=== PATIENT | female | born 1940 | race Caucasian/White ===

== ENCOUNTER 2023-08-31 22:11 | Emergency (ER) | payer OTHER, SELFPAY ==
[2023-08-31 22:12] VITALS: BP 138/58
[2023-08-31 22:18] VITALS: BMI 24.2
--- NOTE | 2023-08-31 23:01 | ED.GENMED ---
History of Present Illness
General
Chief Complaint: Head Injury
Source: patient
Exam Limitations: none
Time Seen by Provider: 08/31/23 22:16
Nursing documentation reviewed up to this point in time: agreed with
Travel History
Have you had any contact with someone who has COVID-19?: No
Do you have any symptoms of coronavirus? Fever > 100 degrees, chills, cough, shortness of breath, sore throat, loss of taste or smell, muscle aches, or headache?: No
History of Present Illness
History of Present Illness:
This a pleasantly demented 83-year-old female that presents with fall this evening. Patient had a head strike. Denies loss of consciousness. She she is on Eliquis for atrial fibrillation. She denies any other injury. History is limited.
Past History
Past History
ED Past Medical History: Arrthythmia (Atrial fibrillation with ablation), HTN and Other (Migraine headaches, rheumatic heart disease, Fractured l ankle, dementia, chronic cough, stress incontinence, UTI)
ED Past Surgical History: Appendectomy, Cholecystectomy, Gynecological (Hysterectomy), Tonsilectomy and Other (Breast reduction, cystocele repair, parathyroidectomy, Bladder lift with mesh)
Social History
Tobacco: Non-smoker
Alcohol: Occasional
Drug: None
Personal:
Living: with family
Review of Systems
Review of Systems
Allergies reviewed?: Yes
Unable to obtain full review of systems at this time due to: dementia
All Other Systems: ROS reviewed and negative except as documented in HPI and ROS
Constitutional: Reports no symptoms
EENT: Reports no symptoms
Respiratory: Reports no symptoms
Cardiac: Reports no symptoms
ABD/GI: Reports no symptoms
: Reports no symptoms
Musculoskeletal: Reports no symptoms
Skin: Reports no symptoms
Neurological: Denies headache
Endocrine: Reports no symptoms
Hematologic/Lymphatic: Reports no symptoms
Psychiatric: Reports anxiety
Phy Exam
General Physical Exam
General Presentation: well appearing and no apparent distress
General Skin: warm and dry
General Habitus: normal
General Hydration: appears well hydrated
ENT Exam
ENT Exam: EOMI, pharynx normal, neck supple and normocephalic
Eye Exam
Eye Exam: PERRL, cornea clear and conjunctiva normal
Cardiovascular Exam
Cardiovascular Exam: no edema, no murmur, normal peripheral pulses and irregularly irregular
Pulmonary Exam
Pulmonary Exam: lungs clear, no respiratory distress, no rales, no crackles, no rhonchi, no stridor, no wheezing and no cough
Gastrointestinal Exam
Gastrointestinal Exam: normal bowel sounds, non tender, soft, no organomegaly, no pulsatile mass and non distended
Neurological Exam
Neurological Exam: alert, oriented x3, no motor deficits and speech normal
Musculoskeletal Exam
Musculoskeletal Exam: full ROM, no edema and other (Full range of motion in all the joints. She initially stated she had tenderness to palpation on the left lateral thigh. She has full range of motion in the hip. Full range of motion of the knee.
No evidence of bruising. And no tenderness to palpation in the same location on subsequent exam.)
Skin Exam
Skin Exam: normal color, warm/dry, no rash and no petechia
Psychiatric Exam
Psychiatric Exam: normal mood/affect
Course
Orders/Labs/Results
Orders:
Orders
08/31/23 22:47
CT Head W/o Iv Contrast Urgent
Comment:
Reason For Exam: fall, posterior head strike, on eliquis
09/01/23 00:46
Melatonin 5 mg PO NOW STA
Vital Signs
Initial and Last Documented VS:
Initial Vital Signs
Temp Pulse Resp BP Pulse Ox
97 F 65 18 138/58 96
08/31/23 22:12 08/31/23 22:12 08/31/23 22:12 08/31/23 22:12 08/31/23 22:12
Last Documented Vital Signs
Temp Pulse Resp BP Pulse Ox
97 F 68 18 114/50 94
08/31/23 22:12 09/01/23 05:05 09/01/23 05:05 09/01/23 05:05 09/01/23 05:05
*Critical Care Note
Total Time (30-74mins, 75-104mins- exclusive of procedures): Not Applicable
Update Note
Update Note:
CT head without contrast
Comparison: 08/27/22, 03/21/22
IMPRESSION:
No acute intracranial hemorrhage. No mass-effect or midline shift.
Mild to moderate ventricular dilatation, similar to prior studies. Generalized atrophy.
Moderate white matter changes related to chronic small vessel ischemic disease.
Left posterior occipital scalp swelling. No skull fracture.
ED Attending Note
-
Portions of this chart may have been created with voice recognition software.� Occasional wrong word or��sound alike� substitutions may have occurred due to the inherent limitations of voice recognition software.
Discharge Plan
Departure
Patient Disposition: Custodial/SNF
Date of Disposition: 09/01/23
Time of Disposition: 00:14
Patient with high blood pressure during this ER visit?: Yes
Condition: Good
Discharge Problem:
Head injury
Instructions: Head Injury in Adults (DC), Contusion (DC), BLOOD PRESSURE
Prescriptions:
No Action
amlodipine 10 MG tablet
10 mg PO HS Qty: 0 0RF
propafenone 225 MG capsule,extended release 12 hr
225 mg PO DAILY
escitalopram oxalate 5 MG tablet
5 mg PO DAILY
Eliquis 5 MG tablet
5 mg PO BID Qty: 0 0RF
Rx Instructions:
on 01/27
atorvastatin 40 mg Tablet
40 mg PO DAILY
acetaminophen 325 mg Tablet
650 mg PO PRN PRN (Reason: pain)
donepezil 10 mg Tablet
10 mg PO HS
atenolol 25 mg Tablet
25 mg PO DAILY
docusate sodium 100 mg Capsule
100 mg PO DAILY PRN (Reason: constipation)
Acidophilus Capsule
1 cap PO DAILY
fluticasone propionate 50 mcg/actuation [place],Suspension
1 spray INTRANASAL DAILY
Refresh Optive 0.5-0.9 % Drops
1 drp BOTH EYES DAILY
Referrals:
Lyle Castro MD [Family Provider] -
Activity Restrictions/Additional Instructions:
It was a pleasure meeting you and taking part in your care. We hope for your continued healing and wellness.
Please read discharge instructions in their entirety. However, they are for general education and may not describe your exact diagnosis at discharge. Information on your ER visit and medical conditions were discussed with you along with appropriate
follow up information...
If indicated, please take your medications as instructed and indicated on discharge paperwork.
Please schedule a follow up appointment as directed. Call to schedule an appointment
Please return to the emergency department with ANY change in, persisting, or worsening of symptoms. If any of your symptoms do not improve, or persist, or become more severe within 6-12 hours, please return to the emergency department for further
care.
Please return to the emergency department if you develop a headache, neck pain/stiffness, fever greater than 100.4F, chest pain, shortness of breath, persistent nausea, vomiting, slurred speech, difficulty walking, numbness/tingling, weakness, signs
of infection or any other symptoms that are worrisome to you.
If you have any questions or concerns please do not hesitate to call the Hospital at or E-mail me directly at [email or web address]
Interventions
Interventions:
*Risk Screen - Suicide Last Done: 08/31/23 22:12
*General Assessment Last Done: 08/31/23 22:12
*Neglect/Abuse Screening Last Done: 08/31/23 22:12
ED- Fall Risk Assessment Last Done: 08/31/23 22:20
ED- Neurological Assessment Last Done: 08/31/23 22:18
ED-Skin Assessment Last Done: 08/31/23 22:24
Discharge Date and Time
Print Language: IVORIAN
[2023-09-01 05:05] VITALS: BP 114/50
--- NOTE | 2023-09-01 07:21 | EDRN ---
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
awaiting transport for the pt, will continue to monitor the pt closely
[2023-09-01 07:23] VITALS: BP 136/71
--- NOTE | 2023-09-01 09:09 | EDRN ---
the pt ambulated to the nurses station and walked up to this RN, and stated, 'Can i please have some kelsey greta?', this RN assisted the pt back to the pts room and the pt is resting in stretcher in the lowest position, side rails up x2, call miller
within reach, HOB elevated, no s/s of distress, will continue to monitor the pt closely
--- NOTE | 2023-09-01 09:13 | EDRN ---
Acute Care has arrived and verbal report was given, this RN called [facility] at [phone] and gave verbal report to the receiving nurse Yanelis
== END 2023-09-01 09:17 ==
LOC: EMR 22:11
PROVIDERS: EMERGENCY PHYSICIAN Student in an Organized Health Care Education/Training Program; FAMILY PHYSICIAN Internal Medicine Geriatric Medicine
DX: S09.90XA Unspecified injury of head, initial encounter (principal); W19.XXXA Unspecified fall, initial encounter; I67.82 Cerebral ischemia; F03.90 Unspecified dementia, unspecified severity, without behavioral disturbance, psychotic disturbance, mood disturbance, and anxiety; I10 Essential (primary) hypertension; I48.91 Unspecified atrial fibrillation; I09.9 Rheumatic heart disease, unspecified; G43.909 Migraine, unspecified, not intractable, without status migrainosus; K21.9 Gastro-esophageal reflux disease without esophagitis; M19.90 Unspecified osteoarthritis, unspecified site; F32.A Depression, unspecified; R05.3 Chronic cough; Z79.01 Long term (current) use of anticoagulants; Z87.440 Personal history of urinary (tract) infections; Z90.49 Acquired absence of other specified parts of digestive tract
CPT/HCPCS: 99284; 70450

== ENCOUNTER → 2023-12-03 13:58 | Outpatient (REF) | payer OTHER, SELFPAY | LOC: RCS 13:58 | PROVIDERS: ATTENDING PHYSICIAN Physician Assistant; FAMILY PHYSICIAN Internal Medicine Geriatric Medicine | DX: I48.0 Paroxysmal atrial fibrillation (principal) | CPT/HCPCS: 93306 ==

== ENCOUNTER 2023-12-08 14:06 | Emergency (ER) | payer OTHER, SELFPAY ==
[2023-12-08 14:08] VITALS: BP 100/51; BMI 23.6
[2023-12-08 14:49] LABS: % Basophils 0.9 % (0-2); % Eosinophils 2.4 % (0-6); % Immature Granulocytes 0.5 % (0-0.5); % Lymphocytes 23.6 % (20.5-51.1); % Monocytes 11.3 % (1.7-9.3); % Neutrophils 61.3 % (42.2-75.2); Absolute Basophils 0.1 10^3/uL (0-0.2); Absolute Eosinophils 0.1 10^3/uL (0-0.7); Absolute Lymphocytes 1.4 10^3/uL (1.2-3.4); Absolute Monocytes 0.7 10^3/uL (0.1-0.6); Absolute Neutrophils 3.6 10^3/uL (1.4-6.5); Hematocrit 37.5 % (37.0-47.0); Hemoglobin 12.5 g/dL (12.0-16.0); Mean Corp Hgb Conc. 33.3 g/dL (33.0-37.0); Mean Corpuscular Hgb 30.1 pg (27.0-31.0); Mean Corpuscular Volume 90.4 fL (81.0-99.0); Mean Platelet Volume 9.8 fL (7.4-10.4); Nucleated Red Blood Cells % 0 %; Platelet Count 231 10^3/uL (130-400); Red Blood Cell Count 4.15 10^6/uL (4.20-5.40); Red Cell Dist. Width 14.1 % (11.5-14.5); White Blood Cell Count 5.8 10^3/uL (4.8-10.8)
[2023-12-08 15:02] LABS: ALT (SGPT) 18 U/L (0-35); AST (SGOT) 27 U/L (14-36); Albumin 3.8 g/dl (3.5-5.0); Alkaline Phosphatase 97 U/L (38-126); Blood Urea Nitrogen 16 mg/dl (7-17); Calcium 8.9 mg/dl (8.4-10.2); Carbon Dioxide 30 mmol/L (22-30); Estimated Creatinine Clearance 41 ml/min; Glucose 98 mg/dl (70-99); Total Bilirubin 0.5 mg/dl (0.2-1.3); Total Protein 6.1 g/dl (6.3-8.2); eGFR > 60.00
[2023-12-08 15:32] LABS: Chloride 104 mmol/L (98-107); Potassium 4.2 mmol/L (3.5-5.1); Sodium 138 mmol/L (135-145)
--- NOTE | 2023-12-08 16:44 | ED.GENMED ---
History of Present Illness
General
Chief Complaint: Fall
Source: ambulance crew and group home
Time Seen by Provider: 12/08/23 15:17
History of Present Illness
History of Present Illness:
83-year-old female with past medical history of dementia, atrial fibrillation, hypertension presenting to the emergency department for evaluation after she had a reported witnessed accidental trip and fall with suspected head injury as well as being
on Eliquis. [facility] sent her to the ER for further evaluation. Patient had reported to staff on arrival that she had some right posterior scalp tenderness but is denying any of this to me. Staff at [facility] was also attempting to get a urine
sample as her urine seem to be a little bit malodorous today. Patient is denying any urinary symptoms to me however she also seems pleasantly confused so history is somewhat unreliable. Patient is unable to recall events from her fall. No other
concerns presently.
Past History
Past History
ED Past Medical History: Arrthythmia (Atrial fibrillation with ablation), HTN and Other (Migraine headaches, rheumatic heart disease, Fractured l ankle, dementia, chronic cough, stress incontinence, UTI)
ED Past Surgical History: Appendectomy, Cholecystectomy, Gynecological (Hysterectomy), Tonsilectomy and Other (Breast reduction, cystocele repair, parathyroidectomy, Bladder lift with mesh)
Social History
Tobacco: Non-smoker
Alcohol: Occasional
Drug: None
Personal:
Living: with family
Review of Systems
Review of Systems
All Other Systems: ROS reviewed and negative except as documented in HPI and ROS
Phy Exam
Physical Exam
Physical Exam:
GENERAL: Alert , in no apparent distress
Head: Normocephalic atraumatic
EYE: conjunctiva clear
NECK: Supple
ENT: o/p clr, mmm.
CARDIAC: Regular rate and rhythm
LUNGS: Clear breath sounds bilaterally, no acute respiratory distress, no wheezes/rales/rhonchi
NEUROLOGICAL: Alert and oriented to self but not place or time
SKIN: Warm and dry, skin intact.
MUSCULOSKELETAL: well perfused.
PSYCH: Normal and appropriate interaction.
Scores
Heart Failure Risk
Heart Failure Risk Score: Not Applicable
Heart Score for Chest Pain Patients
STEMI patient?: Not applicable
Withdrawal Assessment of Alcohol
Withdrawal Assessment Completed?: Not applicable
Course
Orders/Labs/Results
Orders:
Orders
12/08/23 14:32
CT Head W/o Iv Contrast Urgent
Comment:
Reason For Exam: Head injury on eliquis
12/08/23 14:33
Urinalysis Reflex To Culture Urgent
Date Specimen was Collected: 12/08/23
Time Specimen was Collected: 14:33
12/08/23 14:39
Complete Blood Count/With Diff Urgent
Comprehensive Metabolic Panel Urgent
Abnormal Lab Results
12/08/23
14:39
RBC 4.15 L 10^6/uL
(4.20-5.40)
Absolute Monos (auto) 0.7 H 10^3/uL
(0.1-0.6)
Monocytes % 11.3 H %
(1.7-9.3)
Total Protein 6.1 L g/dl
(6.3-8.2)
12/08/23 14:39
12/08/23 14:39
Vital Signs
Initial and Last Documented VS:
Initial Vital Signs
Temp Pulse Resp BP Pulse Ox
98.2 F 60 16 100/51 98
12/08/23 14:08 12/08/23 14:08 12/08/23 14:08 12/08/23 14:08 12/08/23 14:08
Last Documented Vital Signs
Temp Pulse Resp BP Pulse Ox
98.2 F 60 16 100/51 98
12/08/23 14:08 12/08/23 14:08 12/08/23 14:08 12/08/23 14:08 12/08/23 14:08
MDM/Problems Addressed
Differential Diagnosis Includes:
Accidental trip and fall, contusion, intracranial bleeding, UTI
MDM/Problems Addressed:
83-year-old female presenting emergency department for evaluation of an accidental trip and fall with possible head injury. Patient is on Eliquis due to history of A-fib. Currently denying any symptoms. She is unable to recall events from her
fall today. CT of the head ordered. Will also attempt to get a urinalysis to further evaluate. Disposition pending
Chronic conditions affecting care: Neurological disorder (Dementia)
*Radiology
Radiology exam reviewed: radiology read reviewed
*Pulse Oximetry
Patient hypoxic: no
*Critical Care Note
Total Time (30-74mins, 75-104mins- exclusive of procedures): Not Applicable
Patient Management
Discussion with other providers: skilled nursing staff
Escalation/DeEscalation of care consider admission/obs:
Multiple attempts made to get a urine sample however patient missed the urine specimen cup and then had walked to the bathroom and urinated prior to notifying staff. I spoke to patient's group home staff and notified them that we attempted to get
a urine specimen but that this was unsuccessful. Patient is otherwise well-appearing and in no acute distress. His reason for continued outpatient management. Patient is otherwise stable for discharge back to facility.
ED Attending Note
-
Portions of this chart may have been created with voice recognition software.� Occasional wrong word or��sound alike� substitutions may have occurred due to the inherent limitations of voice recognition software.
Discharge Plan
Departure
Patient Disposition: Home (Routine Discharge)
Date of Disposition: 12/08/23
Time of Disposition: 16:45
Patient with high blood pressure during this ER visit?: No
Discharge Problem:
Accidental fall, Dementia
Instructions: Preventing falls in adults
Prescriptions:
No Action
amlodipine 10 MG tablet
10 mg PO HS Qty: 0 0RF
propafenone 225 MG capsule,extended release 12 hr
225 mg PO DAILY
escitalopram oxalate 5 MG tablet
5 mg PO DAILY
Eliquis 5 MG tablet
5 mg PO BID Qty: 0 0RF
Rx Instructions:
on 01/27
atorvastatin 40 mg Tablet
40 mg PO DAILY
acetaminophen 325 mg Tablet
650 mg PO PRN PRN (Reason: pain)
donepezil 10 mg Tablet
10 mg PO HS
atenolol 25 mg Tablet
25 mg PO DAILY
docusate sodium 100 mg Capsule
100 mg PO DAILY PRN (Reason: constipation)
Acidophilus Capsule
1 cap PO DAILY
fluticasone propionate 50 mcg/actuation [place],Suspension
1 spray INTRANASAL DAILY
Refresh Optive 0.5-0.9 % Drops
1 drp BOTH EYES DAILY
Referrals:
Lyle Castro MD [Family Provider] -
Interventions
Interventions:
*Risk Screen - Suicide Last Done: 12/08/23 14:13
*Neglect/Abuse Screening Last Done: 12/08/23 14:13
ED- Fall Risk Assessment Last Done: 12/08/23 14:13
ED-Musculoskeletal Assessment Last Done: 12/08/23 14:10
ED- Neurological Assessment Last Done: 12/08/23 14:10
ED-Skin Assessment Last Done: 12/08/23 14:10
Discharge Date and Time
Print Language: CAMBODIAN
--- NOTE | 2023-12-08 16:54 | EDRN ---
HEATHER Ortiz called and gave report to Nursing staff at [facility] regarding test results, and that urine can be obtained outpt.
== END 2023-12-08 18:28 | disposition home or self-care (01) ==
LOC: EMR 14:06
PROVIDERS: EMERGENCY PHYSICIAN Emergency Medicine; FAMILY PHYSICIAN Internal Medicine Geriatric Medicine
DX: S09.90XA Unspecified injury of head, initial encounter (principal); F03.90 Unspecified dementia, unspecified severity, without behavioral disturbance, psychotic disturbance, mood disturbance, and anxiety; W01.0XXA Fall on same level from slipping, tripping and stumbling without subsequent striking against object, initial encounter; I48.91 Unspecified atrial fibrillation; I10 Essential (primary) hypertension
CPT/HCPCS: 99284; 70450; 80053; 85025

== ENCOUNTER → 2023-12-12 10:24 | Outpatient (REF) | payer OTHER, SELFPAY | LOC: OLABLV 10:24 | PROVIDERS: ATTENDING PHYSICIAN Internal Medicine Geriatric Medicine | DX: R35.0 Frequency of micturition (principal); R82.90 Unspecified abnormal findings in urine | CPT/HCPCS: 87086 ==

== ENCOUNTER 2024-07-12 10:31 | Day surgery (SDC) | payer OTHER, SELFPAY ==
[2024-07-12 10:41] VITALS: BMI 29.6
[2024-07-12 10:57] VITALS: BP 128/72
[2024-07-12 11:02] LABS: Hematocrit 42.3 % (37.0-47.0); Hemoglobin 13.8 g/dL (12.0-16.0); Mean Corp Hgb Conc. 32.6 g/dL (33.0-37.0); Mean Corpuscular Hgb 29.9 pg (27.0-31.0); Mean Corpuscular Volume 91.8 fL (81.0-99.0); Mean Platelet Volume 9.7 fL (7.4-10.4); Platelet Count 239 10^3/uL (130-400); Red Blood Cell Count 4.61 10^6/uL (4.20-5.40); Red Cell Dist. Width 14.2 % (11.5-14.5)
[2024-07-12 11:12] VITALS: BMI 30.7
[2024-07-12 11:13] LABS: APTT 26.8 Sec (23.4-35.0); INR 0.99; PT 13.4 Sec (11.4-14.6)
[2024-07-12 11:24] LABS: ALT (SGPT) 23 U/L (0-35); AST (SGOT) 26 U/L (14-36); Alkaline Phosphatase 121 U/L (38-126); Blood Urea Nitrogen 11 mg/dl (7-17); Calcium 9.1 mg/dl (8.4-10.2); Carbon Dioxide 27 mmol/L (22-30); Chloride 106 mmol/L (98-107); Estimated Creatinine Clearance 38 ml/min; Glucose 94 mg/dl (70-99); Potassium 4.4 mmol/L (3.5-5.1); Sodium 140 mmol/L (135-145); Total Bilirubin 0.7 mg/dl (0.2-1.3); Total Protein 6.5 g/dl (6.3-8.2); eGFR > 60.00
[2024-07-12] MEDS: VANCOCIN 200 IV (12:54)
[2024-07-12 14:27] VITALS: BP 124/69
[2024-07-12 14:43] VITALS: BP 134/80
--- NOTE | 2024-07-12 14:45 | ITS.CL.PACE ---
Forming Machine Upkeep Mechanic - Pacemaker Implant
Pacemaker Implant
Procedure Report:
PACEMAKER GENERATOR CHANGE
Date of Procedure: July 12, 2024
Primary Care Provider: Lyle Castro M.D.
Primary Open Pit Quarry Supervisor: Ivette Jones M.D.
PROCEDURES:
1. Removal of dual chamber PPM generator at [facility]
2. Implant of new dual chamber PPM generator
INDICATION FOR PROCEDURE:
1. PPM generator at [facility]
2. Non-reversible symptomatic bradycardia due to sinus node dysfunction.
The patient was prepped and draped in sterile fashion. Lidocaine with epi was used for local anesthesia. An incision was made along the previous incision and the device and leads were carefully dissected from the pocket. Hemostasis was obtained
with electrocautery. The leads were from the device header and tested using an external analyzer. The pocket was liberally irrigated with antibiotic solution. Once testing (see below) showed adequate and stable function, the leads were
connected to the generator header and the leads and generator were placed within the pocket. The pocket was closed in the typical fashion.
EXPLANTED PPM GENERATOR:
[facility] [id number], [id number], Left Pectoral
IMPLANTED PPM GENERATOR:
Hu [id number], [id number]
RETAINED LEADS:
SJM 2088T, CAT [id number] , RAA
SJM 2088T, CAU [id number] , RV apical septum
DEVICE TESTING:
Sensing: RA 1.5 mV, RV 3.5 mV
Capture: RA 1 V @ 0.4ms, RV 0.5 V @ 0.4ms
Ohms: RA 310, RV 410
FINAL PROGRAMMING
Srini Pacing: DDDR 60-120 ppm
COMPLICATIONS:
None
CONCLUSIONS:
1. Successful explant of dual chamber permanent pacemaker
2. Successful implant of dual chamber permanent pacemaker
RECOMMENDATIONS:
1. In-Office wound check in 7-10 days.
Copy to:
Lyle Castro M.D.
Ivette Jones M.D.
[2024-07-12 14:58] VITALS: BP 127/63
[2024-07-12 15:25] VITALS: BP 161/78
== END 2024-07-12 15:40 | disposition home or self-care (01) ==
LOC: CATH 10:31
PROVIDERS: ATTENDING PHYSICIAN Internal Medicine Cardiovascular Disease; FAMILY PHYSICIAN Nurse Practitioner Gerontology
DX: Z45.010 Encounter for checking and testing of cardiac pacemaker pulse generator [battery] (principal); I49.5 Sick sinus syndrome; Z88.5 Allergy status to narcotic agent; Z88.2 Allergy status to sulfonamides; Z88.1 Allergy status to other antibiotic agents; Z88.0 Allergy status to penicillin; Z79.01 Long term (current) use of anticoagulants; E78.49 Other hyperlipidemia; I10 Essential (primary) hypertension
CPT/HCPCS: 33228; 80053; 85027; 85610; 85730; C1785

== ENCOUNTER 2024-08-16 19:15 | Emergency (ER) | payer OTHER, SELFPAY ==
[2024-08-16 19:17] VITALS: BP 135/70
--- NOTE | 2024-08-16 19:19 | ED.GENMED ---
History of Present Illness
General
Chief Complaint: Fall
Source: patient
Exam Limitations: none
Time Seen by Provider: 08/16/24 19:18
Nursing documentation reviewed up to this point in time: agreed with
History of Present Illness
History of Present Illness:
Patient is an 84-year-old female from [place] presents to the ER nursing care facility for evaluation of fall. Patient walked into another resident as per EMS and fell back hitting her head. EMS reports patient is on Eliquis and does have a
hematoma to her posterior head. She does have baseline dementia. Patient presents awake alert. She is able to tell me she fell. She c/o of soreness to head no headache. No vomiting as per EMS and pt is at baseline mental status as per nursing
care facility.
Past History
Past History
ED Past Medical History: Arrthythmia (Atrial fibrillation with ablation), HTN and Other (Migraine headaches, rheumatic heart disease, Fractured l ankle, dementia, chronic cough, stress incontinence, UTI)
ED Past Surgical History: Appendectomy, Cholecystectomy, Gynecological (Hysterectomy), Tonsilectomy and Other (Breast reduction, cystocele repair, parathyroidectomy, Bladder lift with mesh)
Social History
Tobacco: Non-smoker
Alcohol: Occasional
Drug: None
Personal:
Living: with family
Review of Systems
Review of Systems
Allergies reviewed?: Yes
Unable to obtain full review of systems at this time due to: dementia
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
All Other Systems: ROS reviewed and negative except as documented in HPI and ROS
Constitutional: Reports no symptoms
ABD/GI: Denies nausea or vomiting
Skin: Reports no symptoms
Neurological: Denies headache ( no LOC )
Hematologic/Lymphatic: Reports no symptoms
Psychiatric: Reports no symptoms
Phy Exam
General Physical Exam
General Presentation: no apparent distress
General age: appears stated age
General Skin: warm and dry
General Habitus: normal
General Mental: alert
General Hydration: appears well hydrated
Cardiovascular Exam
Cardiovascular Exam: regular rate/rhythm, no murmur and normal peripheral pulses
Pulmonary Exam
Pulmonary Exam: lungs clear and no respiratory distress
Neurological Exam
Neurological Exam: alert and other (Follows commands but confused conversation)
Musculoskeletal Exam
Musculoskeletal Exam: other (Hematoma to posterior occiput moves all extremities no bony C-spine tenderness;)
Skin Exam
Skin Exam: normal color and warm/dry
Psychiatric Exam
Psychiatric Exam: normal mood/affect
Course
Orders/Labs/Results
Orders:
Orders
08/16/24 19:18
CT Head W/o Iv Contrast Urgent
Comment:
Reason For Exam: trauma
08/16/24 19:19
CT Cervical Spine W/o Iv Contr Urgent
Comment:
Reason For Exam: trauma
Vital Signs
Initial and Last Documented VS:
Initial Vital Signs
Temp Pulse Resp BP Pulse Ox
98.5 F 57 19 135/70 97
08/16/24 19:17 08/16/24 19:17 08/16/24 19:17 08/16/24 19:17 08/16/24 19:17
Last Documented Vital Signs
Temp Pulse Resp BP Pulse Ox
98.5 F 60 19 150/61 95
08/16/24 19:17 08/16/24 23:56 08/16/24 19:17 08/16/24 23:56 08/16/24 23:56
MDM/Problems Addressed
MDM/Problems Addressed:
Patient is an 84-year-old female on [facility] sent by retirement for head injury. Patient walked into the the patient fell back hitting her head she does have posterior hip obvious about hematoma on exam. ct head neg , ct c spine negative .
Patient is pleasantly confused here no other injury stable discharged back to nursing facility.
*Radiology
Radiology exam reviewed: radiology read reviewed
*Pulse Oximetry
Patient hypoxic: no
*Critical Care Note
Total Time (30-74mins, 75-104mins- exclusive of procedures): Not Applicable
ED Attending Note
-
Portions of this chart may have been created with voice recognition software.� Occasional wrong word or��sound alike� substitutions may have occurred due to the inherent limitations of voice recognition software.
Discharge Plan
Departure
Patient Disposition: Home (Routine Discharge)
Date of Disposition: 08/16/24
Time of Disposition: 21:21
Patient with high blood pressure during this ER visit?: Yes
Condition: Fair
Covid-19: Not Applicable
Discharge Problem:
Head injury
Instructions: Head Injury in Adults (DC), BLOOD PRESSURE
Prescriptions:
No Action
propafenone 225 MG capsule,extended release 12 hr
225 mg PO BID
escitalopram oxalate 5 MG tablet
5 mg PO DAILY
Eliquis 5 MG tablet
5 mg PO BID Qty: 0 0RF
atorvastatin 40 mg Tablet
40 mg PO HS
acetaminophen 325 mg Tablet
650 mg PO PRN PRN (Reason: pain)
donepezil 10 mg Tablet
10 mg PO HS
atenolol 25 mg Tablet
25 mg PO DAILY
docusate sodium 100 mg Capsule
100 mg PO DAILY PRN (Reason: constipation)
Acidophilus Capsule
1 cap PO DAILY
fluticasone propionate 50 mcg/actuation [place],Suspension
1 spray INTRANASAL DAILY
loratadine 10 mg Tablet
10 mg PO DAILY
Refresh Optive 0.5-0.9 % Drops
1 drp OPHTHALMIC (EYE) BID
amlodipine 5 mg Tablet
5 mg PO DAILY
Referrals:
UNKNOWN - PT DOES,NOT KNOW [Unknown Provider] -
Activity Restrictions/Additional Instructions:
Patient had a CAT scan of head and cervical spine both of which were negative here in the ER.
Follow-up with family doctor the next several days for reevaluation
Interventions
Interventions:
*Risk Screen - Suicide Last Done: 08/16/24 19:17
*General Assessment Last Done: 08/16/24 19:17
*Neglect/Abuse Screening Last Done: 08/16/24 19:17
*ED- Fall Risk Assessment Last Done: 08/16/24 19:35
*ED COVID-19 Vaccine History Last Done: 08/16/24 19:17
*Nursing Disposition Last Done: 08/16/24 23:59
ED- Neurological Assessment Last Done: 08/16/24 19:21
Discharge Date and Time
Discharge Date/Time: 08/17/24 00:00
Print Language: MARSHALLESE
[2024-08-16 23:56] VITALS: BP 150/61
== END 2024-08-17 | disposition home or self-care (01) ==
LOC: EMR 19:15
PROVIDERS: EMERGENCY PHYSICIAN Emergency Medicine; FAMILY PHYSICIAN Internal Medicine Geriatric Medicine
DX: S09.90XA Unspecified injury of head, initial encounter (principal); S00.93XA Contusion of unspecified part of head, initial encounter; W03.XXXA Other fall on same level due to collision with another person, initial encounter; Y92.89 Other specified places as the place of occurrence of the external cause; F03.90 Unspecified dementia, unspecified severity, without behavioral disturbance, psychotic disturbance, mood disturbance, and anxiety; I48.91 Unspecified atrial fibrillation; I10 Essential (primary) hypertension; I09.9 Rheumatic heart disease, unspecified; R01.1 Cardiac murmur, unspecified; K21.9 Gastro-esophageal reflux disease without esophagitis; M19.90 Unspecified osteoarthritis, unspecified site; F32.A Depression, unspecified; Z79.01 Long term (current) use of anticoagulants; Z87.440 Personal history of urinary (tract) infections; Z90.49 Acquired absence of other specified parts of digestive tract
CPT/HCPCS: 99284; 70450; 72125

== ENCOUNTER → 2024-08-31 12:35 | Outpatient (REF) | payer OTHER, SELFPAY ==
[2024-08-31 13:38] LABS: Urine Albumin 1+ (Neg - Trace); Urine Bilirubin Negative (Negative); Urine Character Clear (Clear); Urine Color Yellow; Urine Glucose Negative (Negative); Urine Ketone Negative (Negative); Urine Leukocyte 1+ (Negative); Urine Nitrite Negative (Negative); Urine Occult Blood Negative (Negative); Urine Specific Gravity 1.015 (<1.030); Urine Urobilinogen Negative (Neg - 1+)
[2024-08-31 13:45] LABS: Urine Squamous Cell 16-20 /LPF (Few)
[2024-08-31 13:46] LABS: Urine Bacteria Few (Negative); Urine Red Blood Cell 0-2 /HPF (0-2)
== END ==
LOC: OLABLV 12:35
PROVIDERS: ATTENDING PHYSICIAN Nurse Practitioner Gerontology
DX: N39.0 Urinary tract infection, site not specified (principal)
CPT/HCPCS: 81003; 81015; 87086

== ENCOUNTER → 2024-10-25 13:00 | Outpatient (REF) | payer OTHER, SELFPAY ==
[2024-10-25 16:51] LABS: Urine Albumin Negative (Neg - Trace); Urine Bilirubin Negative (Negative); Urine Character Clear (Clear); Urine Color Yellow; Urine Glucose Negative (Negative); Urine Ketone Negative (Negative); Urine Leukocyte Negative (Negative); Urine Nitrite Negative (Negative); Urine Occult Blood Negative (Negative); Urine Urobilinogen Negative (Neg - 1+)
== END ==
LOC: OLABLV 13:00
PROVIDERS: ATTENDING PHYSICIAN Nurse Practitioner Gerontology
DX: R32 Unspecified urinary incontinence (principal)
CPT/HCPCS: 81003; 87086

== ENCOUNTER 2025-01-21 17:10 | Emergency (ER) | payer OTHER, SELFPAY ==
[2025-01-21 17:23] VITALS: BP 153/102
--- NOTE | 2025-01-21 20:11 | ED.GENMED ---
History of Present Illness
General
Chief Complaint: Fall
Source: patient
Exam Limitations: dementia
Time Seen by Provider: 01/21/25 19:47
History of Present Illness
History of Present Illness:
84yoF with a history of dementia, atrial fibrillation on Eliquis, hypertension presenting via EMS for evaluation after an unwitnessed fall. Patient is a resident at [facility]. She currently complains of pain in the back of her head and has
a hematoma present. She also reports right wrist pain. She is otherwise asymptomatic and denies any dizziness, chest pain, shortness of breath.
Past History
Past History
ED Past Medical History: Arrthythmia (Atrial fibrillation with ablation), HTN and Other (Migraine headaches, rheumatic heart disease, Fractured l ankle, dementia, chronic cough, stress incontinence, UTI)
ED Past Surgical History: Appendectomy, Cholecystectomy, Gynecological (Hysterectomy), Tonsilectomy and Other (Breast reduction, cystocele repair, parathyroidectomy, Bladder lift with mesh)
Social History
Tobacco: Non-smoker
Alcohol: Occasional
Drug: None
Personal:
Living: with family
Phy Exam
General Physical Exam
General Presentation: well appearing and no apparent distress
General Skin: warm and dry
General Habitus: normal and elderly
General Mental: alert
ENT Exam
ENT Exam: other (Small 2cm scalp laceration noted to posterior scalp with underlying hematoma. )
Additional ENT: No cervical spine tenderness
Eye Exam
Eye Exam: PERRL and conjunctiva normal
Pulmonary Exam
Pulmonary Exam: lungs clear, no respiratory distress, no rales, chest non tender, no crackles and no rhonchi
Gastrointestinal Exam
Gastrointestinal Exam: non tender, soft and non distended
Neurological Exam
Neurological Exam: alert
Musculoskeletal Exam
Musculoskeletal Exam: other (R hand: Tenderness near base of thumb. Thumb opposition elicits pain. No deformity. 2+ radial pulse.)
Skin Exam
Skin Exam: normal color and warm/dry
Psychiatric Exam
Psychiatric Exam: normal mood/affect
Course
Orders/Labs/Results
Orders:
Orders
01/21/25 17:26
CT Cervical Spine W/o Iv Contr Urgent
Comment:
Reason For Exam: unwitnessed fall, head strike
CT Head W/o Iv Contrast Urgent
Comment:
Reason For Exam: unwitnessed fall, head strike
Hand, Right 3 View [CR Hand - Right Min 3 Views] Urgent
Comment:
Reason For Exam: pain
01/21/25 20:18
Splints/Slings/Crut- Treatment ONCE
Location: Right
Type of Splint: Other
Comment: radial gutter
01/22/25 00:02
Tetanus/Diphth/Acelpertussis [Adacel] 0.5 ml IM .ONCE ONE
Vital Signs
Initial and Last Documented VS:
Initial Vital Signs
Temp Pulse Resp BP Pulse Ox
98.0 F 113 20 153/102 96
01/21/25 17:23 01/21/25 17:23 01/21/25 17:23 01/21/25 17:23 01/21/25 17:23
Last Documented Vital Signs
Temp Pulse Resp BP Pulse Ox
98.0 F 113 20 153/102 96
01/21/25 17:23 01/21/25 17:23 01/21/25 17:23 01/21/25 17:23 01/21/25 20:11
MDM/Problems Addressed
Differential Diagnosis Includes:
84yoF presenting [facility] after an unwitnessed [facility]. She arrives with a posterior scalp laceration with hematoma. She also c/o R hand/wrist pain. Hx of dementia. On Eliquis for afib. She is awake and alert. Differential diagnosis
includes but is not limited to: laceration, closed head injury, fracture, intracranial hemorrhage
Imaging obtained in triage. CT head/cervical spine negative for acute findings. R hand x-rays show findings suggestive of a nondisplaced fx at the base of the 2nd metacarpal bone. Radial gutter splint applied but patient removed splint 20 minutes
later. Decker wrist brace applied but patient also continually removes this. Splinting is not feasible at this point due to her dementia. Will discharge with wrist brace and have her f/u with orthopedics as an outpatient.
*Pulse Oximetry
SaO2: 96
Oxygen Mode of Delivery: Room air
Patient hypoxic: no (96%)
*Critical Care Note
Total Time (30-74mins, 75-104mins- exclusive of procedures): Not Applicable
ED Attending Note
-
Portions of this chart may have been created with voice recognition software.� Occasional wrong word or��sound alike� substitutions may have occurred due to the inherent limitations of voice recognition software.
Discharge Plan
Departure
Patient Disposition: Home (Routine Discharge)
Date of Disposition: 01/21/25
Time of Disposition: 20:51
Patient with high blood pressure during this ER visit?: Yes
Discharge Problem:
Unwitnessed fall, Laceration of scalp, Closed fracture of second metacarpal bone
Instructions: Hand Fracture ED, How to care for a splint
Prescriptions:
No Action
propafenone 225 MG capsule,extended release 12 hr
225 mg PO BID
escitalopram oxalate 5 MG tablet
5 mg PO DAILY
Eliquis 5 MG tablet
5 mg PO BID Qty: 0 0RF
atorvastatin 40 mg Tablet
40 mg PO HS
acetaminophen 325 mg Tablet
650 mg PO PRN PRN (Reason: pain)
donepezil 10 mg Tablet
10 mg PO HS
atenolol 25 mg Tablet
25 mg PO DAILY
docusate sodium 100 mg Capsule
100 mg PO DAILY PRN (Reason: constipation)
Acidophilus Capsule
1 cap PO DAILY
fluticasone propionate 50 mcg/actuation [place],Suspension
1 spray INTRANASAL DAILY
loratadine 10 mg Tablet
10 mg PO DAILY
Refresh Optive 0.5-0.9 % Drops
1 drp OPHTHALMIC (EYE) BID
amlodipine 5 mg Tablet
5 mg PO DAILY
Referrals:
Lyle Castro MD [Family Provider, Internal Medicine]
Contreras Teran MD [Active, Orthopedics]
Activity Restrictions/Additional Instructions:
X-rays showed evidence of a 2nd metacarpal fracture. We attempted to place a splint on Randa but she kept removing it. Please try your best to keep wrist brace on.
Please follow-up with orthopedics next week.
Interventions
Interventions:
*Risk Screen - Suicide Last Done: 01/21/25 17:23
*General Assessment Last Done: 01/21/25 17:23
ED-Musculoskeletal Assessment Last Done: 01/21/25 20:10
ED- Neurological Assessment Last Done: 01/21/25 20:10
ED-Skin Assessment Last Done: 01/21/25 20:10
Discharge Date and Time
Print Language: MEXICAN
[2025-01-22] MEDS: ADACEL 0.5 ML IM (00:35)
[2025-01-22 01:05] VITALS: BP 139/99
== END 2025-01-22 01:09 | disposition home or self-care (01) ==
LOC: EMR 17:10
PROVIDERS: EMERGENCY PHYSICIAN Emergency Medicine; FAMILY PHYSICIAN Internal Medicine Geriatric Medicine
DX: S62.340A Nondisplaced fracture of base of second metacarpal bone, right hand, initial encounter for closed fracture (principal); S01.01XA Laceration without foreign body of scalp, initial encounter; W19.XXXA Unspecified fall, initial encounter; I10 Essential (primary) hypertension; I48.91 Unspecified atrial fibrillation; Z90.49 Acquired absence of other specified parts of digestive tract; Z90.710 Acquired absence of both cervix and uterus; Z79.01 Long term (current) use of anticoagulants; F03.90 Unspecified dementia, unspecified severity, without behavioral disturbance, psychotic disturbance, mood disturbance, and anxiety; Z23 Encounter for immunization
CPT/HCPCS: 29125; 99284; 90471; 70450; 72125; 73130; 90715

== ENCOUNTER 2025-03-30 06:33 | Emergency (ER) | payer OTHER, SELFPAY ==
[2025-03-30 06:37] VITALS: BP 143/95
[2025-03-30 06:40] VITALS: BMI 25.5
[2025-03-30 07:14] VITALS: BP 124/94
[2025-03-30 08:12] VITALS: BP 144/91
[2025-03-30] MEDS: TENORMIN 25 MG PO (08:27)
--- NOTE | 2025-03-30 08:36 | ED.GENMED ---
History of Present Illness
General
Chief Complaint: Fall
Time Seen by Provider: 03/30/25 06:52
History of Present Illness
History of Present Illness:
See MDM
Past History
Past History
ED Past Medical History: Arrthythmia (Atrial fibrillation with ablation), HTN and Other (Migraine headaches, rheumatic heart disease, Fractured l ankle, dementia, chronic cough, stress incontinence, UTI)
ED Past Surgical History: Appendectomy, Cholecystectomy, Gynecological (Hysterectomy), Tonsilectomy and Other (Breast reduction, cystocele repair, parathyroidectomy, Bladder lift with mesh)
Social History
Tobacco: Non-smoker
Alcohol: Occasional
Drug: None
Personal:
Living: with family
Phy Exam
Physical Exam
Physical Exam:
See MDM
Course
Orders/Labs/Results
Orders:
Orders
03/30/25 07:07
CT Cervical Spine W/o Iv Contr Urgent
Comment:
Reason For Exam: fall dementia
03/30/25 07:08
CT Head W/o Iv Contrast Urgent
Comment:
Reason For Exam: fall dementia
03/30/25 07:56
Electrocardiogram (*1) Urgent
Reason for Study: Tachycardia
EKG- Treatment ONCE
03/30/25 08:07
pacemaker [Interrogate Pacemaker- Treatment] ONCE
03/30/25 08:09
Atenolol [Tenormin] 25 mg PO NOW STA
Vital Signs
Initial and Last Documented VS:
Initial Vital Signs
Temp Pulse Resp BP Pulse Ox
36.8 C 115 16 143/95 96
03/30/25 06:37 03/30/25 06:37 03/30/25 06:37 03/30/25 06:37 03/30/25 06:37
Last Documented Vital Signs
Temp Pulse Resp BP Pulse Ox
36.8 C 90 20 120/70 98
03/30/25 06:37 03/30/25 13:08 03/30/25 13:08 03/30/25 13:08 03/30/25 13:08
MDM/Problems Addressed
Differential Diagnosis Includes:
see MDM
MDM/Problems Addressed:
Note:
CHIEF COMPLAINT(S)
Fall with head injury potential.
HISTORY OF PRESENT ILLNESS
The patient is an 84-year-old female with h/o dementia from [facility] who experienced a fall this morning. according to RN whom i spoke with on the pphone, pt just fell backwards when walking in her room, she did not appear to have lost
consciousness. no one was wwith her but they saw it on video. She reports losing her balance and falling backward, hitting her head in the process. The patient confirms she is on a blood thinner. After the fall, she was able to get up and contact
emergency services, who arrived to assist her. She does not report pain in her neck, although her head was impacted. The patient is oriented to person but appears confused about the current year and month, initially stating it was May. She
reports taking her medications, including blood pressure medication, earlier in the day. Her heart rate was noted to be slightly elevated.
[employer]FF[employer]ING HE[employer]
The patient lives alone in her house and was alone at the time of the fall. She was able to get up independently and contact emergency services.
PHYSICAL EXAM
- Neurological: The patient is oriented to person but disoriented regarding the time of year. She has no neck pain and could perform head movements without discomfort.
- Musculoskeletal: Reports no other pain in the back, belly, hips, elbows, or hands after the fall.
- Cardiovascular: Heart rate noted to be slightly elevated.
PROBLEM LIST
Acute:
- Fall with head injury.
Chronic:
- Possible atrial fibrillation (suspected due to the mention of blood thinners).
PLAN
- Perform a scan of the head and neck to rule out any internal injuries.
- Continuous monitoring and evaluation in the healthcare facility to ensure no delayed complications arise from the fall.
- Re-evaluate current medication, including blood thinners, after analysis of the scan results.
DIFFERENTIAL DIAGNOSIS
The Differential Diagnosis includes, in no particular order and is not limited to:
1. Traumatic brain injury
2. Subdural hematoma
3. Orthostatic hypotension
4. Vestibular disorders
5. Cardiac arrhythmia
6. Medication side effects
7. Dehydration
8. Hypoglycemia
9. Transient ischemic attack
10. Cerebrovascular accident
84-year-old female with a history of pretty severe dementia, [facility] on [facility] presents after an unwitnessed fall where she was walking in her room and was witnessed on the camera only to fall backwards. There was no obvious provoking situation to
cause her fall. It did not appear that she passed out. Patient is at her baseline mental status, oriented to person, otherwise quite confused. She has no obvious signs of head trauma. Her neck was mildly sore but she had full range of motion.
Her CT head and neck was negative for trauma. Given the fact that she has a history of a pacemaker I did obtain a pacemaker interrogation, it was difficult initially because her device is in a low moderate mode not transmitting currently so we
required the rep to come in for an in person interrogation which read as consistent A-fib since November 2024 with a heart rate usually in the 1 teens, atrial flutter 2-1. This was discussed with ED attending. Her heart rate improved after her morning
dose of atenolol. Discharged back to the facility
*Pulse Oximetry
SaO2: 98
Oxygen Mode of Delivery: Room air
Patient hypoxic: no (96)
*Critical Care Note
Total Time (30-74mins, 75-104mins- exclusive of procedures): Not Applicable
ED Attending Note
-
Portions of this chart may have been created with voice recognition software.� Occasional wrong word or��sound alike� substitutions may have occurred due to the inherent limitations of voice recognition software.
Discharge Plan
Departure
Patient Disposition: Home (Routine Discharge)
Date of Disposition: 03/30/25
Time of Disposition: 11:13
Patient with high blood pressure during this ER visit?: No
Condition: Fair
Covid-19: Not Applicable
Discharge Problem:
Fall, Atrial fibrillation
Instructions: Head Injury in Adults (DC)
Prescriptions:
No Action
propafenone 225 MG capsule,extended release 12 hr
225 mg PO BID
escitalopram oxalate 5 MG tablet
5 mg PO DAILY
atorvastatin 40 mg Tablet
40 mg PO HS
acetaminophen 325 mg Tablet
650 mg PO Q6HPRN PRN (Reason: mild pain)
donepezil 10 mg Tablet
10 mg PO HS
atenolol 25 mg Tablet
25 mg PO DAILY
docusate sodium 100 mg Capsule
100 mg PO DAILYPRN PRN (Reason: constipation)
fluticasone propionate 50 mcg/actuation [place],Suspension
1 spray INTRANASAL DAILY
Refresh Optive 0.5-0.9 % Drops
1 drp BOTH EYES BID
nystatin 100,000 unit/gram Powder
1 applic TOPICAL BID
Eliquis 2.5 mg Tablet
2.5 mg PO BID
midodrine 2.5 mg Tablet
2.5 mg PO DAILY
calcium carbonate-vitamin D3 [Calcium 500 + D] 500 mg-10 mcg (400 unit) Tablet
1 tab PO BID
Visbiome 112.5 billion cell Capsule
1 cap PO DAILY
Referrals:
UNKNOWN,NO INTERVIEW [Family Provider]
Activity Restrictions/Additional Instructions:
THERE WERE NO TRAUMATIC FINDINGS ON CAT SCAN OF HEAD OR NECK
WE INTERROGATED THE PACER WHICH DID NOT SHOW ANYTHING OTHER THAN AFIB
SHE WAS GIVEN HER ATENOLOL TODAY TO HELP WITH HER HEART RATE
RETURN FOR ANY CCONERNS.
Interventions
Interventions:
*Risk Screen - Suicide Last Done: 03/30/25 06:43
*General Assessment Last Done: 03/30/25 06:41
*Neglect/Abuse Screening Last Done: 03/30/25 06:43
*ED- Fall Risk Assessment Last Done: 03/30/25 07:00
*ED COVID-19 Vaccine History Last Done: 03/30/25 06:41
*ED Influenza Vaccine History Last Done: 03/30/25 06:41
*Nursing Disposition Last Done: 03/30/25 14:17
ED-Musculoskeletal Assessment Last Done: 03/30/25 06:55
ED- Neurological Assessment Last Done: 03/30/25 06:55
ED-Skin Assessment Last Done: 03/30/25 07:21
Discharge Date and Time
Discharge Date/Time: 03/30/25 14:43
Print Language: GERMAN
[2025-03-30 10:00] VITALS: BP 129/84
[2025-03-30 13:08] VITALS: BP 120/70
== END 2025-03-30 14:43 | disposition home or self-care (01) ==
LOC: EMR 06:33
PROVIDERS: EMERGENCY PHYSICIAN Physician Assistant
DX: Z04.3 Encounter for examination and observation following other accident (principal); W18.39XA Other fall on same level, initial encounter; Y93.01 Activity, walking, marching and hiking; Y92.129 Unspecified place in nursing home as the place of occurrence of the external cause; I48.91 Unspecified atrial fibrillation; F03.C0 Unspecified dementia, severe, without behavioral disturbance, psychotic disturbance, mood disturbance, and anxiety; I10 Essential (primary) hypertension; I09.9 Rheumatic heart disease, unspecified; R05.3 Chronic cough; Z79.01 Long term (current) use of anticoagulants; Z95.0 Presence of cardiac pacemaker
CPT/HCPCS: 99284; 93288; 70450; 72125; 93005